=== PATIENT | male | born 1995 | race Caucasian/White ===

== ENCOUNTER 2023-12-31 18:17 | Emergency (ER) | payer BC, SELFPAY ==
[2023-12-31 18:18] VITALS: BP 146/91
--- NOTE | 2023-12-31 19:12 | ED.GENMED ---
History of Present Illness
General
Chief Complaint: Abdominal Pain
Source: patient and spouse
Time Seen by Provider: 12/31/23 18:57
Travel History
Have you had any contact with someone who has COVID-19?: No
Do you have any symptoms of coronavirus? Fever > 100 degrees, chills, cough, shortness of breath, sore throat, loss of taste or smell, muscle aches, or headache?: No
History of Present Illness
History of Present Illness:
28-year-old male presents emergency department complaints of left lower quadrant discomfort that started around 7 PM yesterday while at a barbecue. The pain continued throughout the night and he noticed it this morning when he was awake as well.
Throughout the day, he notes the pain is now more episodic in nature, occurring unpredictably lasting a few minutes at a time approximately every 30 minutes. Within the last 2 hours he also notes associated episodic left flank pain he denies groin
or testicular pain, upper abdominal pain, chest pain, shortness of breath, fever, chills, hematuria, dysuria, urgency. He thought he might be constipated but notes he just had a normal bowel movement. Patient was seen in urgent care and referred
to the emergency department for further testing. With this, he is having waves of nausea and had 2 episodes of nonbloody vomiting that he thinks are the result of the pain.
Past History
Past History
ED Past Medical History: Hypothyroidism
ED Past Surgical History: Other (Thyroidectomy)
Social History
Tobacco: Non-smoker
Alcohol: None
Drug: None
Personal:
Living: with family
Phy Exam
Physical Exam
Physical Exam:
GENERAL: Alert , in no apparent distress
EYE: pupils equal and reactive
NECK: Supple, no significant adenopathy.
ENT: o/p clr, mmm.
CARDIAC: Regular rate and rhythm .
LUNGS: Clear breath sounds bilaterally, no acute respiratory distress, no wheezes/rales/rhonchi
ABDOMEN: Soft, minimal left lower tenderness, no r/g, no cvat
NEUROLOGICAL: Alert and oriented, no focal neuro deficits
SKIN: Warm and dry, skin intact.
MUSCULOSKELETAL: No edema, well perfused.
PSYCH: Normal and appropriate interaction.
Course
Orders/Labs/Results
Orders:
Orders
12/31/23 19:12
CT Abd/Pel (IV only)-[facility] only Urgent
Comment:
Reason For Exam: llq/flank pain
0.9% Sodium Chloride 1000 ml [Nss] 1,000 ml IV BOLUS
Ketorolac [Toradol] 15 mg IV NOW STA
Ondansetron Injectable [Zofran] 4 mg IV NOW STA
12/31/23 19:28
Complete Blood Count/No Diff Urgent
Comprehensive Metabolic Panel Urgent
Lipase Urgent
Urinalysis Reflex To Culture Urgent
Date Specimen was Collected: 12/31/23
Time Specimen was Collected: 19:22
Abnormal Lab Results
12/31/23
19:28
WBC 18.0 H 10^3/uL
(4.8-10.8)
Sodium 134 L mmol/L
(135-145)
Urine Ketones 2+ A
(Negative)
12/31/23 19:28
12/31/23 19:28
Vital Signs
Initial and Last Documented VS:
Initial Vital Signs
Temp Pulse Resp BP Pulse Ox
98.9 F 95 16 146/91 100
12/31/23 18:18 12/31/23 18:18 12/31/23 18:18 12/31/23 18:18 12/31/23 18:18
Last Documented Vital Signs
Temp Pulse Resp BP Pulse Ox
98.9 F 70 16 130/66 99
12/31/23 18:18 12/31/23 22:37 12/31/23 18:18 12/31/23 22:37 12/31/23 22:37
*Critical Care Note
Total Time (30-74mins, 75-104mins- exclusive of procedures): Not Applicable
Update Note
Update Note:
Patient presents to the Emergency Department with left abdominal pain
Number and Complexity of Problems Addressed at the Encounter
� Chronic conditions affecting care:
� Acute Exacerbation and/or Progression of Chronic Illness:
� Differential Diagnosis includes: But not limited to diverticulitis, bowel obstruction, kidney stone, etc.
Amount and/or Complexity of Data to be Reviewed and Analyzed
� I performed an independent evaluation of and my interpretation is:
EKG:
CT:. MODERATE ACUTE COLITIS in the SPLENIC FLEXURE of the colon and PROXIMAL DESCENDING COLON. Diagnostic possibilities are (1) an acute infectious colitis, (2) acute inflammatory bowel disease (Crohn's disease), (3)
vasculitis/connective tissue disease, or (4) less likely acute ischemic colitis.
2. Minimal peritoneal fluid in the pelvic cul-de-sac.
Xrays:
Laboratory Studies:wbc elevation noted/ c/w infx vsinflamm
Other:
� Review of other/old records reveals:
� Clinical information was obtained by an independent historian: who is at bedside
� Prescriptions/Medications Considered but not given:
� Further testing considered but not performed:
Risk of Complications and/or Morbidity or Mortality of Patient Management
� Social determinants of health affecting care:
� Discussion with other providers (PCP, Hospitalists, Consultants, etc):
� Escalation of care including admission/observation vs risk of discharge considered: 10:01 PM patient comfortable, feels much better, no further episodes of pain. No fever, chills, blood in stool, recent foreign travel, recent
sick contacts. He is unable to provide a stool here. He does however now note that he has had a few loose stools in the last 24 hours. His reminds him that he had an accident in the store today related to loose stools. This is consistent
with CT findings of colitis however specific etiology i.e. IBD versus acute infection, etc. not yet clear. Patient stable for discharge given no pain. I do not think acute ischemic colitis is likely given young age lack of risk factors, etc.
Discussed with patient importance of close follow-up with not only but GI, and he will be given a copy of his CAT scan for that follow-up. We will pause on consideration of antibiotics at this time given lack of associated infectious findings such
as fever or blood in stool. Patient and aware of importance of follow-up and reasons to return to the ER.
ED Attending Note
-
Portions of this chart may have been created with voice recognition software.� Occasional wrong word or��sound alike� substitutions may have occurred due to the inherent limitations of voice recognition software.
Discharge Plan
Departure
Patient Disposition: Home (Routine Discharge)
Date of Disposition: 12/31/23
Time of Disposition: 22:02
Patient with high blood pressure during this ER visit?: Yes
Condition: Good
Discharge Problem:
Colitis
Instructions: Colitis (DC), BLOOD PRESSURE
Referrals:
Brianna Dwyer MD [Active] - Next open appointment
Jean Painter DO [Family Provider] - Tomorrow
Activity Restrictions/Additional Instructions:
IF YOU DEVELOP DIZZINESS, CHEST PAIN, TROUBLE BREATHING, RECURRENT/NEW/WORSENING ABDOMINAL PAIN, ANY VOMITING, FEVER, BLOOD IN YOUR STOOL, OR OTHER WORRISOME SIGNS, GO TO THE ER IMMEDIATELY!
Interventions
Interventions:
*Risk Screen - Suicide Last Done: 12/31/23 18:18
*General Assessment Last Done: 12/31/23 18:18
*Neglect/Abuse Screening Last Done: 12/31/23 18:18
*ED COVID-19 Vaccine History Last Done: 12/31/23 18:18
*Nursing Disposition Last Done: 12/31/23 22:44
XO-Kcklsk-Qbcgccxggj Assessment Last Done: 12/31/23 19:39
Discharge Date and Time
Discharge Date/Time: 12/31/23 22:45
Print Language: GABONESE
[2023-12-31] MEDS: TORADOL 15 MG IV (19:22)
[2023-12-31] MEDS: ZOFRAN 4 MG IV (19:23)
[2023-12-31] MEDS: NSS 1000 IV (19:23)
[2023-12-31 19:41] LABS: Hematocrit 41.7 % (39.0-52.0); Hemoglobin 15.1 g/dL (13.0-18.0); Mean Corp Hgb Conc. 36.2 g/dL (33.0-37.0); Mean Corpuscular Hgb 30.1 pg (27.0-31.0); Mean Corpuscular Volume 83.2 fL (80.0-94.0); Mean Platelet Volume 10.3 fL (7.4-10.4); Platelet Count 267 10^3/uL (130-400); Red Blood Cell Count 5.01 10^6/uL (4.70-6.10); Red Cell Dist. Width 11.9 % (11.5-14.5)
[2023-12-31 19:46] LABS: Urine Albumin Negative (Neg - Trace); Urine Bilirubin Negative (Negative); Urine Character Clear (Clear); Urine Color Yellow; Urine Glucose Negative (Negative); Urine Ketone 2+ (Negative); Urine Leukocyte Negative (Negative); Urine Nitrite Negative (Negative); Urine Occult Blood Negative (Negative); Urine Urobilinogen Negative (Neg - 1+); Urine pH 6.5 (5.0-9.0)
[2023-12-31 19:56] LABS: ALT (SGPT) 25 U/L (0-50); AST (SGOT) 31 U/L (17-59); Albumin 4.5 g/dl (3.5-5.0); Alkaline Phosphatase 87 U/L (38-126); Blood Urea Nitrogen 13 mg/dl (9-20); Calcium 9.5 mg/dl (8.4-10.2); Carbon Dioxide 23 mmol/L (22-30); Chloride 101 mmol/L (98-107); Glucose 86 mg/dl (70-99); Lipase 93 U/L (23-300); Potassium 4.2 mmol/L (3.5-5.1); Sodium 134 mmol/L (135-145); Total Protein 7.4 g/dl (6.3-8.2); eGFR > 60.00
[2023-12-31 22:37] VITALS: BP 130/66
== END 2023-12-31 22:45 | disposition home or self-care (01) ==
LOC: EMR 18:17
PROVIDERS: EMERGENCY PHYSICIAN Emergency Medicine; FAMILY PHYSICIAN Family Medicine
DX: K52.9 Noninfective gastroenteritis and colitis, unspecified (principal)
CPT/HCPCS: 99284; 74177; 80053; 81003; 83690; 85027; Q9967